=== PATIENT | female | born 2000 | race Two or more races ===

== ENCOUNTER 2023-07-06 11:58 | Emergency (ER) | payer OTHER ==
[~2023-07-06] VITALS: Ht 165.1 cm; Wt 72.6 kg
== END 2023-07-06 15:55 | disposition home or self-care (01) ==
LOC: ER 11:58
DX: S93.401A Sprain of unspecified ligament of right ankle, initial encounter (principal); X50.1XXA Overexertion from prolonged static or awkward postures, initial encounter; Y93.89 Activity, other specified; Y92.89 Other specified places as the place of occurrence of the external cause; Y99.9 Unspecified external cause status